=== PATIENT | female | born 2000 | race Hispanic/Latino ===

== ENCOUNTER 2022-08-14 18:44 | Inpatient (IN) | payer OTHER ==
[~2022-08-14 18:44] MED LIST: Bupivacaine 0.25% HCL 30 ML VIAL ONE; Bupivacaine/Epinephrine 0.25% 30 ML VIAL ONE; Lidocaine 2% MPF 10 ML AMP (For Epidural Use) ONE
[2022-08-14 19:26] VITALS: BMI 37.0
[2022-08-14] MEDS ORDERED: hydrALAZINE 20 MG/ML VIAL SLOW IVP PRN ×2 (19:47→20:50)
[2022-08-14 20:28] LABS: Fetal Membranes Rupture RUPTURE DETECTED (No Rupture)
[2022-08-14] MEDS ORDERED: Promethazine HCl 25 MG/ML VIAL IM PRN (20:50)
[2022-08-14] MEDS ORDERED: Methylergonovine 0.2 MG/ML VIAL IM PRN (20:50)
[2022-08-14] MEDS ORDERED: Penicillin G Potassium 5 MILL.UNITS VIAL ONE (20:50)
[2022-08-14] MEDS ORDERED: Lidocaine 1% (PF) 30 ML VIAL SC PRN (20:50)
[2022-08-14] MEDS ORDERED: Misoprostol 200 MCG TAB PR PRN (20:50)
[2022-08-14] MEDS ORDERED: Ibuprofen 800 MG TAB PO PRN (20:50)
[2022-08-14] MEDS ORDERED: Ondansetron PF 4 MG/2 ML Vial IVP PRN (20:50)
[2022-08-14] MEDS ORDERED: Penicillin G Potassium 5 MILL.UNITS in Sodium Chloride 0.9% 100 ML IVPB SCH (21:00)
[2022-08-14] MEDS ORDERED: NS w/ Oxytocin 30 units 500 ML IV SCH (21:00)
[2022-08-14 21:51] LABS: Hemoglobin 12.7 g/dL (12.0-15.5); Mean Corpuscular HGB CONC 34.2 g/dL (32.0-36.0); Mean Corpuscular Hemoglobin 27.9 pg (27.0-33.0); Mean Corpuscular Volume 81.5 fl (81.6-98.3); Mean Platelet Volume 11.7 fl (7.4-10.4); Platelet Count 153 10x3/uL (150-450); RBC Distribution Width 18.6 % (11.5-14.5); Red Blood Cell (RBC) Count 4.55 10x6/uL (3.90-5.03); White Blood Cell (WBC) Count 11.8 10x3/uL (3.5-10.5)
[2022-08-14 22:15] LABS: HBSAg Index 0.16 S/CO (0-0.99); Hep B Surf Ag Non-Reactive S/CO (NonReactive)
[2022-08-14] MEDS: Misoprostol 100 MCG TAB PO SCH (22:20)
[2022-08-14 23:52] LABS: Syphilis Antibody Nonreactive (Nonreactive); Syphilis Antibody Index 0.03 S/CO (<1.00 Non-Reactive)
[2022-08-15] MEDS ORDERED: Butorphanol Tartrate 1 MG/ML VIAL SLOW IVP PRN (03:26)
[2022-08-15] MEDS ORDERED: Butorphanol Tartrate 1 MG/ML VIAL ONE (03:29)
[2022-08-15] MEDS: Penicillin G 2.5 MILL.units 2.5 MILL.UNITS in Premix Bag 1 BAG IVPB SCH ×3 (03:34→14:08)
[2022-08-15] MEDS ORDERED: Fentanyl 2 mcg/Bup 0.1% Cadd 100 ML ONE (05:47)
[2022-08-15] MEDS ORDERED: ePHEDrine Sulfate 50 MG/10 ML VIAL SLOW IVP PRN (06:26)
[2022-08-15] MEDS ORDERED: Lactated Ringer's 500 ML IV PRN (06:26)
[2022-08-15] MEDS ORDERED: Promethazine HCl 25 MG/ML VIAL IM PRN (06:26)
[2022-08-15] MEDS ORDERED: Acetaminophen 325 MG TAB PO PRN (06:26)
[2022-08-15] MEDS ORDERED: Naloxone HCl 0.4 mg/ml Vial IVP PRN ×2 (06:26)
[2022-08-15] MEDS ORDERED: Moisturizing Cream (Eucerin) 113 GM JAR TOP PRN (06:26)
[2022-08-15] MEDS ORDERED: diphenhydrAMINE 50 MG/ML VIAL IVP PRN (06:26)
[2022-08-15] MEDS ORDERED: Ondansetron PF 4 MG/2 ML Vial IVP PRN (06:26)
[2022-08-15] MEDS ORDERED: Communication Order-Pharmacy FS SCH (06:30)
[2022-08-15] MEDS ORDERED: Fentanyl 2 mcg/Bupivacaine 0.1% Cassette 100 ML EPIDURAL SCH (06:30)
[2022-08-15] MEDS ORDERED: Benzocaine-Menthol 82.5 ML CAN TOP PRN (10:48)
[2022-08-15] MEDS ORDERED: Lanolin Ointment 7 GM TUBE TOP PRN (10:48)
[2022-08-15] MEDS ORDERED: Bisacodyl 10 MG SUPP PR PRN (10:48)
[2022-08-15] MEDS ORDERED: Milk Of Magnesia 30 ML UDCUP PO PRN (10:48)
[2022-08-15] MEDS ORDERED: Preparation H Ointment 28 GM TUBE PR PRN (10:48)
[2022-08-15] MEDS: Misoprostol 100 MCG TAB PO SCH (14:07)
[2022-08-15] MEDS: Ibuprofen 800 MG TAB PO SCH ×2 (14:07→21:34)
[2022-08-15] MEDS: Ferrous Sulfate 325 MG TAB PO SCH (18:19)
[2022-08-15] MEDS: Docusate 100 MG CAP PO SCH (21:34)
[2022-08-16 02:06] LABS: SARS-CoV-2 NAA Rapid Test Not Detected (NotDetected)
[2022-08-16 04:53] LABS: Hemoglobin 9.7 g/dL (12.0-15.5)
[2022-08-16] MEDS: Ferrous Sulfate 325 MG TAB PO SCH ×2 (09:08→16:38)
[2022-08-16] MEDS: Prenatal Vitamin 1 TAB PO SCH (09:08)
[2022-08-16] MEDS: Docusate 100 MG CAP PO SCH ×2 (09:08→23:40)
[2022-08-16] MEDS: Ibuprofen 800 MG TAB PO SCH ×3 (09:09→23:41)
[2022-08-17] MEDS: Ibuprofen 800 MG TAB PO SCH ×2 (06:41→13:59)
[2022-08-17] MEDS: Ferrous Sulfate 325 MG TAB PO SCH (08:09)
[2022-08-17] MEDS: Prenatal Vitamin 1 TAB PO SCH (08:09)
[2022-08-17] MEDS: Docusate 100 MG CAP PO SCH (08:09)
[2022-08-17 08:28] VITALS: BP 125/71; TEMP 98.6
[2022-08-18] MEDS ORDERED: Boostrix 0.5 ML (Tdap) VIAL (>/=7 yrs of age) IM ONE (10:48)
== END 2022-08-17 14:50 | disposition home or self-care (01) | DRG 807 ==
LOC: CSHLD/OP 18:44 → CSHLD 20:51 → CSHPP 08-15 11:40
PROVIDERS: ADMIT Student in an Organized Health Care Education/Training Program; ATTEND Student in an Organized Health Care Education/Training Program
PROC: 3E0P7VZ Introduction of Hormone into Female Reproductive, Via Natural or Artificial Opening (ICD-10-PCS; 2022-08-14)
PROC: 10E0XZZ Delivery of Products of Conception, External Approach (ICD-10-PCS; principal; 2022-08-15)
PROC: 0UQMXZZ Repair Vulva, External Approach (ICD-10-PCS; 2022-08-15)
DX: O42.013 Preterm premature rupture of membranes, onset of labor within 24 hours of rupture, third trimester (principal); Z37.0 Single live birth; Z3A.36 36 weeks gestation of pregnancy; D50.9 Iron deficiency anemia, unspecified; O99.02 Anemia complicating childbirth; E66.9 Obesity, unspecified; O99.214 Obesity complicating childbirth; O36.63X0 Maternal care for excessive fetal growth, third trimester, not applicable or unspecified; Z20.822 Contact with and (suspected) exposure to COVID-19; O99.824 Streptococcus B carrier state complicating childbirth; J45.909 Unspecified asthma, uncomplicated; O99.52 Diseases of the respiratory system complicating childbirth
CPT/HCPCS: 36415; 51702; 84112; 85014; 85018; 85027; 86780; 86850; 86900; 86901; 87340; 87480; 87510; 87660; 88307; J0595; J2540; J3490; S0020